=== PATIENT | female | born 1945 | race African-American/Black ===

== ENCOUNTER 2023-11-19 08:44 | Emergency (ER) | payer SELFPAY ==
[~2023-11-19] VITALS: Ht 165.1 cm; Wt 63.6 kg
[~2023-11-19 08:44] MED LIST: ALBU2.5V13 IH; ATROV NEB; AZIT500T8 PO; FLUT1AER IH; GUAI1TBM14 PO; IBUP-2030 PO; P20 PO; SIMV-43 PO
[2023-11-19 08:50] VITALS: BP 131/98; PULSE 100; RESP 18; TEMP 98.7; O2SAT 96
[2023-11-19] MEDS ORDERED: IPRATROPIUM BROMIDE (0.02%) 0.5MG/2.5ML NEB HHN STA (09:10)
[2023-11-19] MEDS ORDERED: PREDNISONE 20MG TABLET PO STA (09:10)
[2023-11-19] MEDS ORDERED: ACETAMINOPHEN 325MG TABLET PO STA (09:10)
[2023-11-19] MEDS ORDERED: ASPIRIN 81MG TABLET PO ONE (09:15)
[2023-11-19] MEDS ORDERED: ALBUTEROL (0.083%) 2.5MG/3ML NEB HHN SCH (09:30)
[2023-11-19 09:48] LABS: CHLORIDE 103 mEq/L (98-107); POTASSIUM 3.7 mEq/L (3.5-5.1); SODIUM 140 mEq/L (136-145)
[2023-11-19 09:49] LABS: BASOPHILS % 0.5 % (0.0-2.0); CALCIUM 9.9 mg/dL (8.7-10.4); EOSINOPHILS % 0.6 % (0.0-5.0); HEMATOCRIT. 38.2 % (36.0-48.0); HEMOGLOBIN. 12.7 g/dL (12.0-16.0); LYMPHOCYTES % 17.5 % (20.0-50.0); MEAN CORPUSCULAR HEMOGLOBIN 31.1 pg (28.0-32.0); MEAN CORPUSCULAR HGB CONC 33.3 g/dL (31.0-37.0); MEAN CORPUSCULAR VOLUME 93.5 fL (81.0-99.0); MEAN PLATELET VOLUME 8.9 fl (7.4-10.4); MONOCYTES % 9.2 % (2.0-8.0); NEUTROPHILS % 72.2 % (40.0-76.0); PLATELET 359 x1000/uL (130-400); RED BLOOD CELL COUNT 4.08 mill/uL (4.2-5.4); RED CELL DISTRIBUTION WIDTH 13.6 % (11.6-14.6); WHITE BLOOD COUNT 10.1 x1000/uL (4.5-11.0)
[2023-11-19 09:51] LABS: INR 0.9; PARTIAL THROMBOPLASTIN TIME 22.8 sec (23.4-31.0); PROTHROMBIN TIME 10.3 sec (9.6-11.0)
[2023-11-19 09:54] LABS: UREA NITROGEN BLOOD 22 mg/dL (9-23)
[2023-11-19 10:00] LABS: TROPONIN I HIGH SENSITIVITY < 4 ng/L (3.0-34)
[2023-11-19 10:06] LABS: CARBON DIOXIDE 24 mEq/L (21-32)
[2023-11-19 16:22] LABS: GLUCOSE 42 mg/dL (70-105)
== END 2023-11-19 10:11 | disposition left against medical advice (07) ==
LOC: ER 08:44
DX: R07.89 Other chest pain (principal); R06.02 Shortness of breath; J45.909 Unspecified asthma, uncomplicated; Z79.899 Other long term (current) drug therapy
CPT/HCPCS: 80048; 83880; 83690; 85025; 85610; 85730; 84484; 36415; 71045; 93005; 99285; Z7610